=== PATIENT | male | born 2000 | race Two or more races ===

== ENCOUNTER 2021-08-06 20:36 | Emergency (ER) | payer OTHER ==
[~2021-08-06] VITALS: Ht 188 cm; Wt 99.8 kg
[~2021-08-06 20:36] MED LIST: [UNRECOGNIZED DRUG - REMARK]
== END 2021-08-06 23:11 | disposition home or self-care (01) ==
LOC: ER 20:36
DX: S82.64XA Nondisplaced fracture of lateral malleolus of right fibula, initial encounter for closed fracture (principal); W18.09XA Striking against other object with subsequent fall, initial encounter; Y93.01 Activity, walking, marching and hiking; Y92.488 Other paved roadways as the place of occurrence of the external cause; Y99.8 Other external cause status

== ENCOUNTER 2021-08-16 11:45 | Day surgery (SDC) | payer OTHER ==
[2021-08-17] MEDS ORDERED: ULTRAM50 MG (04:56)
[2021-08-17] MEDS ORDERED: PERCOCET 5-3251 EACH PO (06:00)
== END 2021-08-16 21:20 | disposition home or self-care (01) ==
LOC: CIR.AMB 11:45
PROVIDERS: ATTEND Orthopaedic Surgery
DX: S82.61XA Displaced fracture of lateral malleolus of right fibula, initial encounter for closed fracture (principal); Z20.822 Contact with and (suspected) exposure to COVID-19
CPT/HCPCS: 27792; C1776

== ENCOUNTER 2021-08-17 03:50 | Emergency (ER) | payer OTHER ==
[~2021-08-17] VITALS: Ht 188 cm; Wt 99.8 kg
[2021-08-17] MEDS ORDERED: ULTRAM50 MG (04:56)
[2021-08-17] MEDS ORDERED: PERCOCET 5-3251 EACH PO (06:00)
== END 2021-08-17 06:06 | disposition home or self-care (01) ==
LOC: ER 03:50
DX: G89.18 Other acute postprocedural pain (principal); M25.571 Pain in right ankle and joints of right foot

== ENCOUNTER 2024-09-01 13:05 | Emergency (ER) | payer OTHER ==
[~2024-09-01] VITALS: Ht 185.4 cm; Wt 108.0 kg
[~2024-09-01 13:05] MED LIST changes: +PERCOCET 5-3251 EACH PO; +ULTRAM50 MG
[2024-09-01] MEDS ORDERED: DEXAMETHASONE SODIUM PHOSPHATE 4 MG/ML VIAL IM ONE (17:15)
[2024-09-01] MEDS ORDERED: KETOROLAC TROMETHAMINE 60 MG VIAL IM ONE ×2 (17:15)
[2024-09-01] MEDS ORDERED: DEXAMETHASONE SODIUM PHOSPHATE 4 MG/ML VIAL ONE (17:15)
[2024-09-01] MEDS ORDERED: IBU600 MG PO (18:46)
== END 2024-09-01 19:01 | disposition home or self-care (01) ==
LOC: ER 13:07
DX: S63.92XA Sprain of unspecified part of left wrist and hand, initial encounter (principal)